=== PATIENT | male | born 1995 | race African-American/Black ===

== ENCOUNTER 2023-11-16 05:06 | Emergency (ER) | payer SELFPAY ==
[2023-11-16] MEDS: Acetaminophen 500 MG Tab PO ONE (05:29)
[2023-11-16] MEDS: Lidocaine 2% Viscous Solution 15 ML UD PO ONE (05:31)
[2023-11-16] MEDS: Ibuprofen 600 MG Tab PO ONE (05:31)
[2023-11-16] MEDS: Amoxicillin 500 MG Cap PO ONE (05:31)
[2023-11-16] MEDS: Benzocaine 20% Topical Spray UD MUCMEM ONE (05:32)
== END 2023-11-16 05:47 | disposition home or self-care (01) ==
LOC: MW.ED 05:06
DX: K08.89 Other specified disorders of teeth and supporting structures (principal); Z75.8 Other problems related to medical facilities and other health care; Z79.899 Other long term (current) drug therapy
CPT/HCPCS: 99282; A9270